=== PATIENT | female | born 1940 | race Caucasian/White ===

== ENCOUNTER 2018-10-31 13:15 | Inpatient (IN) | payer MEDICARE ==
--- NOTE | 2018-10-31 14:11 | History & Physical ---
History of Present Illness - Date Date of Service for History & Physical: 11/01/18 - History of Present Illness History of Present Illness: Mrs. 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 The patient had a closed colostomy and open approach reversal of transverse colon on 08/23/18 due to diversticulitis. She was in rehab post-operatively but on her return home she complained of abdominal and left gluteal pain and her family reports that she began to 'decline' in mental status and physical mobility. The patient was re- admitted to [facility] where CT of the abdomen/pelvis showed anastomosis thickening, surrounding inflammatory changes and a large subcutaneous abscess was noted in addition to gluteal abscess. As a result she underwent incision and drainage of the abdominal wall abscess and diverting loop ileostomy and was started on IV antibiotics which she completed while at [facility]. The gluteal abscess was suppose to to be evaluated by interventional radiology as per the inpatient notes but no recommendations seen in provided documents. The patient is being admitted to [facility] Swing bed for deconditioning and continued wound care. She has advanced dementia and requires queing and instruction to complete tasks. She will be following with her surgeon Dr. Gisel Oliveros for post-op care/evaluation within 10 days. General - Communication Preferred Language?: Portuguese H&P Meds/Allergies - Allergies Allergies: Allergies Allergy/AdvReac Type Severity Reaction Status Date / Time No Known Drug Allergies Allergy Verified 10/31/18 17:11 Physical Exam - General General Appearance: Alert, Cooperative Limitations: No limitations - Head Head exam: Normal inspection - Eye Eye exam: Normal appearance, PERRL - ENT ENT exam: Normal exam Ear exam: Normal external inspection Mouth exam: Normal external inspection Teeth exam: Dental caries - Respiratory Respiratory exam: Normal lung sounds bilaterally - Cardiovascular Peripheral Pulses: 3+: Radial (R), Radial (L), Dorsalis Pedis (R), Dorsalis Pedis (L) - GI/Abdominal GI/Abdominal exam: Soft, Normal bowel sounds, Other (ostomy pink drainage well ) - Extremities Extremities exam: Normal inspection, Full ROM, Normal capillary refill. negative: Tenderness - Back Back exam: Reports: Other (draining abscess left flank) - Neurological Neurological exam: Abnormal gait, Alert - Psychiatric Psychiatric exam: Agitated - Skin Skin exam: Other (left gluteal ulcer with copius yellow drainage. ) Type of lesion: Abscess Plan - Swing Bed Certification Initial Certification Due: 10/31/18 14 Day Re-Cert Due: 11/14/18 44 Day Re-Cert Due: 12/14/18 74 Day Re-Cert Due: 01/13/19 - Detailed Diagnosis and Plan (1) Physical deconditioning Current Visit: Yes Status: Acute Base Code: R53.81 - OTHER MALAISE Comment : 11/01/18: - Deconditioning due to prolonged hospital stay s/p surgery. - PT/OT evaluation and treatment. - Fall precuations ordered. (2) Gluteal abscess Current Visit: Yes Status: Acute Base Code: L02.31 - CUTANEOUS ABSCESS OF BUTTOCK Comment: 11/01/18 - Left gluteal abscess with copius serous drainage. - Completed abx course at [facility]. Wound cultures positive for VRE. - Daily dressing changes and wound care. (3) Ileostomy, has currently Current Visit: Yes Status: Acute Base Code: Z93.2 - ILEOSTOMY STATUS Comment: 11/01/18: - S/P diverting loop ileostomy due to abdominal wall abscess and gluteal abscess. Post-op day #7 - Ostomy appears pink to be functioning well with + stool output. - Removal of stoma bridge to removed POD #10 - Nutrition: regualr diet, supplemented with Ensure. - Follow up with Gen. Surgery 10 days after discharge. (4) Encounter for postoperative wound care Current Visit: Yes Status: Acute Base Code: Z48.89 - ENCOUNTER FOR OTHER SPECIFIED SURGICAL AFTERCARE Comment: 11/01/18: - Wound care for gluteal abscess as noted. - Do not pack wound. Allow to drain and re-dress daily. (5) Dementia Current Visit: Yes Status: Acute Qualifiers: Dementia type: Alzheimer's disease Base Code: F03.90 - UNSPECIFIED DEMENTIA WITHOUT BEHAVIORAL DISTURBANCE Comment: 11/01/18: - Resume Aricept, Nemenda, Remeron. (6) HTN (hypertension) Current Visit: Yes Status: Acute Base Code: I10 - ESSENTIAL (PRIMARY) HYPERTENSION Comment: 11/01/18: - Resume home medications. (7) DVT prophylaxis Current Visit: Yes Status: Acute Base Code: [id number] - Comment: 11/01/18: - Lovenox 40mg SQ - Ambulation with assistance is encouraged. (8) Full code status Current Visit: Yes Status: Acute Base Code: Z78.9 - OTHER SPECIFIED HEALTH STATUS Comment: 11/01/18: - Full code.
[2018-10-31] MEDS: ACETAMINOPHEN 325 MG TAB PO PRN (16:44)
[2018-10-31] MEDS ORDERED: PNEUM 13-VAL/PF 0.5 ML IM ONE (20:05)
[2018-10-31] MEDS: DONEPEZIL HCL 5 MG TABLET PO SCH (22:38)
[2018-10-31] MEDS: SIMVASTATIN 20 MG TABLET PO SCH (22:39)
[2018-10-31] MEDS: MIRTAZAPINE 15 MG TABLET PO SCH (22:39)
[2018-10-31] MEDS: MEMANTINE HCL 10 MG TABLET PO SCH (22:39)
[2018-11-01] MEDS: ACETAMINOPHEN 325 MG TAB PO PRN ×2 (04:44→11:06)
[2018-11-01] MEDS: PANTOPRAZOLE SODIUM 40 MG TABLET PO SCH (06:10)
[2018-11-01] MEDS: CALCIUM CARB/VITAMIN D 500MG/200IU PO SCH (09:11)
[2018-11-01] MEDS: ASPIRIN 81 MG TABEC PO SCH (09:11)
[2018-11-01] MEDS: METOPROLOL SUCC 25 MG TAB.ER PO SCH (09:11)
[2018-11-01] MEDS: MULTIVITAMINS/MINERALS TABLET PO SCH (09:11)
[2018-11-01] MEDS: MEMANTINE HCL 10 MG TABLET PO SCH ×2 (09:11→22:44)
[2018-11-01] MEDS: CHOLECALCIFEROL 1,000 UNIT TABLET PO SCH (09:11)
--- NOTE | 2018-11-01 10:13 | Rehab Evaluation ---
Patient Information - Patient Information Diagnosis: deconditioning d/t post diverting loop ostomy Ordered Treatment: OT Evaluate and Treat Status: Initial Evaluation Past Medical/Surgical Hx: PAST MEDICAL/SURGICAL HISTORY Past Surgical History 10/21/2018 I&D abd abscess 10/24/2018 Lap diverting loop ilestomy PMH - Neuro Hx Seizures Yes PMH - GI Hx Gastrointestinal Disorders Yes Hx Diverticulitis Yes PMH - Psych Hx Psychiatric Problems Yes PMH - Hematology/Oncology Hx Chemotherapy Yes Premorbid Status: Detail (Pt lives with spouse in a 2 story house with 3 steps and 1 railing at the entrance. Her bedroom is usually on the second floor but she currently has a bed available on the main level. She has a walk in shower with a seat and grab bars and a standard height toilet with grab bars. She has a toilet riser that she prefers not to use. She is responsible for home mgmt and laundry and her spouse is responsible for meal prep. She ambulates with a 4 wheeled walker.) Precautions: [place], Fall, Other (isolation) - Time With Patient Total Time Spent With Patient (Min): 35 Treatment Procedures: Detail (OT eval low complexity) Subjective Information - Subjective Information Per Patient Objective Data - Pain Pain Present: Yes (3/10 buttock pain) - Mental Status Patient Orientation: Oriented x3 - Visual Perception Appears within normal limits for therapeutic activities (Pt reports she wears glasses for reading.) - ROM Not within normal limits (Dwain shoulder flexion limited to approx. 90 degrees. Remaining dwain UE AROM WNL.) - Strength/Tone Not within normal limits (Dwain shoulder strength 4-/5, dwain elbow and bleach mixer strength 4/5) - Coordination Appears within normal limits for therapeutic activities - Bed Mobility Needs Assist (Pt required min assist for supine to sit.) - Transfers Needs Assist (Min assist for sit to stand from EOB, CG assist for sit to stand from wheelchair seat.) - Balance Balance Sitting: Good Balance Standing: Fair - Sensation Intact - Gait Detail (Pt amb several feet in room with 4 wheeled walker and CG assist.) - ADL's/IADL's Detail (Pt able to brush hair and teeth with verbal encouragement, she refused to doff slipper socks, don socks,shoes or clean brief. She reports she does not want to try as she is unable.) Therapy Assessment - Therapy Assessment Detail (Pt presents with decreased tolerance to activity, decreased Ind with self cares and functional mobility.) Problem List - Problem List Occupational Therapy Problem List: Detail (1. Decreased activity tolerance. 2. Decreased Ind with functional mobility needed for self cares. 3. Decreased Ind with dressing and showering.) Goals - Goals Occupational Therapy Goals: 1. Pt will demonstrate improved endurance to allow Ind with self care activites. 2. Pt will be Ind with bed mobility and ambulation to allow Ind with ADLs. 3. Pt will be Ind with total body dressing. 4. Pt will be Ind with showering in sitting. Prognosis - Prognosis Moderate Plan - Plan Occupational Therapy Plan: OT 2-4 days per week.
[2018-11-01] MEDS: ENOXAPARIN 40 MG/0.4 ML SYR SQ SCH (10:21)
--- NOTE | 2018-11-01 10:25 | Rehab Evaluation ---
Patient Information - Patient Information Diagnosis: deconditioning d/t post diverting loop ostomy Ordered Treatment: PT Evaluate and Treat Status: Initial Evaluation Past Medical/Surgical Hx: PAST MEDICAL/SURGICAL HISTORY Past Surgical History 10/21/2018 I&D abd abscess 10/24/2018 Lap diverting loop ilestomy PMH - Neuro Hx Seizures Yes PMH - GI Hx Gastrointestinal Disorders Yes Hx Diverticulitis Yes PMH - Psych Hx Psychiatric Problems Yes PMH - Hematology/Oncology Hx Chemotherapy Yes Premorbid Status: Detail (Pt lives with spouse in a 2 story house with 3 steps and 1 railing at the entrance. Her bedroom is usually on the second floor but she currently has a bed available on the main level. She has a walk in shower with a seat and grab bars and a standard height toilet with grab bars. She has a toilet riser that she prefers not to use. She is responsible for home mgmt and laundry and her spouse is responsible for meal prep. She ambulates with a 4 wheeled walker.) Precautions: [place], Fall, Other (isolation) - Time With Patient Total Time Spent With Patient (Min): 30 Treatment Procedures: Detail (Initial Evalution) Subjective Information - Subjective Information Per Patient (The patient had complaints of abdominal region pain which she did not rate using 0-10 pain scale.) Objective Data - Mental Status Patient Orientation: Oriented x3 (The patient knew current month, birthdate and place. The patient was reluctant and agitated at times throughout evaluation, stating she wouldn't complete certain activities.), Person - Visual Perception Appears within normal limits for therapeutic activities - ROM Within normal limits (The patient's LE AROM was WFL.) - Strength/Tone Not within normal limits (LE strength: : hip flexors L 4/5, R 4-/5, B hip abductors and adductors 4-/5, knee extensors L 4/5, R 4-/5, knee flexors L 4/5, R 4-/5, ankle musculature 4+/5.) - Bed Mobility Needs Assist (The patient required minimal PA with supine to sit transfer.) - Transfers Independent (The patient was independent with sit to and from stand transfer.) - Balance Balance Sitting: Good Balance Standing: Fair (The patient exhibited upper extremity tremors when standing without support. The patient's balance was not formally assessed.) - Gait Detail (The patient ambulated with 4 wheeled walker with supervision for safety 13 feet x 1.) Therapy Assessment - Therapy Assessment Detail (The patient was reluctant to complete many activities without assist ie : bed mobility, putting on and taking off socks- stating that she couldn't and wouldn't do it. The patient ambulated short distances with supervision for safety. Patient's Rehab potential is guarded due to reluctance to participate.) Problem List - Problem List Physical Therapy Problem List: Detail (1) Mental status- agitation, reluctance to complete ADL's independently 2) LE weakness R side greater then L 3) Assistance with bed mobility 4) Decreased ability to complete prolonged physical activity) Occupational Therapy Problem List: Detail (1. Decreased activity tolerance. 2. Decreased Ind with functional mobility needed for self cares. 3. Decreased Ind with dressing and showering.) Goals - Goals Occupational Therapy Goals: 1. Pt will demonstrate improved endurance to allow Ind with self care activites. 2. Pt will be Ind with bed mobility and ambulation to allow Ind with ADLs. 3. Pt will be Ind with total body dressing. 4. Pt will be Ind with showering in sitting. Prognosis - Prognosis Moderate Plan - Plan Physical Therapy Plan: PT 1-2 times a day for gait training, LE strengthening exercises and bed mobility. Occupational Therapy Plan: OT 2-4 days per week.
--- NOTE | 2018-11-01 14:12 | Physical Therapy Tx Note ---
Physical Therapy Tx Note - Treatment Note Tolerated: Fair Total Time Spent With Patient: 20 Physical Therapy Tx Note: Detail (The patient was in bed when PT arrived. The patient required minimal PA with supine to sit and scooting forward in a sitting position. The patient stood x 1 and reported she felt light headed . The patient then stood again without lightheadedness and ambulated with 4 wheeled walker 10 feet to chair. Patient did not feel well enough to ambulate further. The patient completed the following LE exercises : hip marching, LAQ, ankle pumps, hip adductor squeezes, resisted hip abduction all x 10 reps. Shortness of breath was noted after LE exercises. Patient requested to go back to bed due to fatigue. Patient was encouraged to sit up at least a half an hour. Patient was left up in chair with call light in reach. Nursing staff was notified that patient was up in chair.) Physical Therapy Problem List: Detail (1) Mental status- agitation, reluctance to complete ADL's independently 2) LE weakness R side greater then L 3) Assistance with bed mobility 4) Decreased ability to complete prolonged physical activity) Physical Therapy Plan: PT 1-2 times a day for gait training, LE strengthening exercises and bed mobility.
[2018-11-01] MEDS: ACETAMINOPHEN 500 MG TABLET PO PRN (19:34)
[2018-11-01] MEDS ORDERED: ZINC OXIDE 28.35 GM TUBE TOP ONE (22:23)
[2018-11-01] MEDS: MIRTAZAPINE 15 MG TABLET PO SCH (22:44)
[2018-11-01] MEDS: DONEPEZIL HCL 5 MG TABLET PO SCH (22:44)
[2018-11-01] MEDS: SIMVASTATIN 20 MG TABLET PO SCH (22:44)
[2018-11-02] MEDS ORDERED: ZINC OXIDE 28.35 GM TUBE TOP PRN (01:50)
[2018-11-02] MEDS: ACETAMINOPHEN 500 MG TABLET PO PRN ×3 (04:47→19:04)
[2018-11-02 06:08] LABS: HEMATOCRIT 33.9 % (35.0-47.0); HEMOGLOBIN 10.1 gm/dl (11.6-16.0); MEAN CELL VOLUME 88.5 fl (81-97); MEAN CORPUSCULAR HGB CONC 29.8 g/dl (32-36); MEAN PLATELET VOLUME 8.1 fl (7.4-10.4); PLATELET COUNT 499 K/uL (130-400); RED BLOOD COUNT 3.83 M/uL (3.80-5.40); RED CELL DISTRIBUTION WIDTH 17.2 % (11.5-14.5); WHITE BLOOD COUNT W/O DIFF 10.9 K/uL (4.2-12.2)
[2018-11-02] MEDS: PANTOPRAZOLE SODIUM 40 MG TABLET PO SCH (06:10)
[2018-11-02 06:14] LABS: MEAN CORPUSCULAR HEMOGLOBIN 26.3 pg (27-33)
[2018-11-02 06:23] LABS: ALB/GLOB RATIO 0.8 (1.1-1.8); ALBUMIN 3.1 g/dL (4.0-5.0); ALKALINE PHOSPHATASE 113 U/L (45-87); ALT/SGPT 16 U/L (<33); AST/SGOT 18 U/L (10.0-35.0); BLOOD UREA NITROGEN 11 mg/dL (8-23); CREATININE 0.9 mg/dL (0.5-0.9); EST GLOMERULAR FILTRATION RATE > 60 mL/min; GLUCOSE,RANDOM 111 mg/dL (74-109); TOTAL PROTEIN 6.8 g/dL (6.6-8.7)
[2018-11-02 06:50] LABS: ANISOCYTOSIS 1+; PLATELET ESTIMATE INCREASED (NORMAL)
[2018-11-02] MEDS: ENOXAPARIN 40 MG/0.4 ML SYR SQ SCH (10:42)
[2018-11-02] MEDS: MULTIVITAMINS/MINERALS TABLET PO SCH (10:43)
[2018-11-02] MEDS: METOPROLOL SUCC 25 MG TAB.ER PO SCH (10:43)
[2018-11-02] MEDS: MEMANTINE HCL 10 MG TABLET PO SCH ×2 (10:43→21:52)
[2018-11-02] MEDS: CHOLECALCIFEROL 1,000 UNIT TABLET PO SCH (10:43)
[2018-11-02] MEDS: CALCIUM CARB/VITAMIN D 500MG/200IU PO SCH (10:43)
[2018-11-02] MEDS: ASPIRIN 81 MG TABEC PO SCH (10:43)
[2018-11-02] MEDS: DONEPEZIL HCL 5 MG TABLET PO SCH (21:52)
[2018-11-02] MEDS: SIMVASTATIN 20 MG TABLET PO SCH (21:52)
[2018-11-02] MEDS: MIRTAZAPINE 15 MG TABLET PO SCH (21:52)
[2018-11-03] MEDS: PANTOPRAZOLE SODIUM 40 MG TABLET PO SCH (06:22)
[2018-11-03] MEDS: ENOXAPARIN 40 MG/0.4 ML SYR SQ SCH (09:13)
[2018-11-03] MEDS: MEMANTINE HCL 10 MG TABLET PO SCH ×2 (09:14→21:03)
[2018-11-03] MEDS: CHOLECALCIFEROL 1,000 UNIT TABLET PO SCH (09:14)
[2018-11-03] MEDS: METOPROLOL SUCC 25 MG TAB.ER PO SCH (09:14)
[2018-11-03] MEDS: ASPIRIN 81 MG TABEC PO SCH (09:14)
[2018-11-03] MEDS: CALCIUM CARB/VITAMIN D 500MG/200IU PO SCH (09:14)
[2018-11-03] MEDS: MULTIVITAMINS/MINERALS TABLET PO SCH (09:14)
--- NOTE | 2018-11-03 09:23 | Physician Progress Note ---
Subjective - Date Date of Progress Note: 11/03/18 - Admitting Diagnosis Diagnosis: Deconditioning due to post diverting loop ostomy - Subjective Events since last encounter: The patient has had several runs of fever, controlled with Tylenol. She continues to have copius amounts of drainage from the gluteal fistula and today there is noted similar discharge per rectum. Nursing Care Plan Problem List Activity Intolerance (Swing Bed) Start: 10/31/18 18: 22 Freq: Status: Active Protocol: Created 10/31/18 18:22 SAF (Rec: 10/31/18 18:22 SAF [id number]) Altered Thought Process (Fall Risk) Start: 10/31/18 19: 58 Freq: Status: Active Protocol: Created 10/31/18 19:58 SAF (Rec: 10/31/18 19:58 SAF [id number]) Body Image Disturbance Start: 10/31/18 17: 42 Freq: Status: Active Protocol: Created 10/31/18 17:42 KMC (Rec: 10/31/18 17:42 KMC [id number]) High Risk: Post-Op Complications Start: 10/31/18 17: 42 Freq: Status: Active Protocol: Created 10/31/18 17:42 KMC (Rec: 10/31/18 17:42 KMC [id number]) Impaired Mobility (Fall Risk) Start: 10/31/18 19: 58 Freq: Status: Active Protocol: Created 10/31/18 19:58 SAF (Rec: 10/31/18 19:58 SAF [id number]) Impaired Skin Integrity Start: 10/31/18 17: 42 Freq: Status: Active Protocol: Created 10/31/18 17:42 KMC (Rec: 10/31/18 17:42 KMC [id number]) Knowledge Deficit (Swing Bed) Start: 10/31/18 18: 22 Freq: Status: Active Protocol: Created 10/31/18 18:22 SAF (Rec: 10/31/18 18:22 SAF [id number]) Knowledge Deficit: Colostomy Start: 10/31/18 17: 42 Freq: Status: Active Protocol: Created 10/31/18 17:42 KMC (Rec: 10/31/18 17:42 KMC [id number]) Pain (Swing Bed) Start: 10/31/18 18: 22 Freq: Status: Active Protocol: Created 10/31/18 18:22 SAF (Rec: 10/31/18 18:22 SAF [id number]) Risk For Falls (Swing Bed) Start: 11/02/18 10: 09 Freq: Status: Active Protocol: Created 11/02/18 10:09 MMT (Rec: 11/02/18 10:09 MMT [id number]) Risk For Infection (Swing Bed) Start: 10/31/18 17: 42 Freq: Status: Active Protocol: Created 10/31/18 17:42 KMC (Rec: 10/31/18 17:42 KMC [id number]) Risk for Injury (Fall Risk) Start: 10/31/18 19: 58 Freq: Status: Active Protocol: Created 10/31/18 19:58 SAF (Rec: 10/31/18 19:58 SAF [id number]) Skin Integrity, Impaired (Swing Bed) Start: 10/31/18 17: 42 Freq: Status: Active Protocol: Created 10/31/18 17:42 KMC (Rec: 10/31/18 17:42 KMC [id number]) - Subjective Detail Gastrointestinal: Reports: Other (mucopurulent rectal discharge. ) Skin: Reports: Other (gluteal abscess) General - Cognitive Patterns Speech: Normal Speech Comment: Short answers; did not elaborate unless asked to specifically. Thought Process: Intact Thought Content: Normal - Communication Select best description of speech pattern: Clear Speech Ability to express ideas and wants: Understood Understanding verbal content: Usually Understands - Mood and Behavior Patterns Appearance: Well Groomed Mood: Normal, Irritable Mood Comment: Pt seemed a bit irritable, but was cooperative. Attitude: Cooperative Motor Activity: Calm Affect: Flat Hallucinations: Denies - Physical Functioning Activity Level: Up with assist x1 Turning: Self ad yoli ROM Ability: Moves all extremities Assistive Devices: 2 Wheel Walker Ambulation Ability: Needs Assist Bed Mobility: Independent Transfer Ability: Needs Assist Bathing Ability: Needs Assist Personal Hygiene: Needs Assist Dressing Ability: Needs Assist Eating (Feeding) Ability: Independent Toileting Ability: Needs Assist Administer Own Medication: Independent - Continence Bowel Pattern: Diarrhea Bladder Pattern: Incontinent Urinary Incontinence: Unconscious Meds/Allergies - Allergies Allergies Allergy/AdvReac Type Severity Reaction Status Date / Time No Known Drug Allergies Allergy Verified 10/31/18 17:11 - Active Medications Current Medications Acetaminophen (Tylenol 500mg Tab) 1,000 mg PO Q6H PRN PRN Reason: FEVER Last Admin: 11/02/18 19:04 Dose: 1,000 mg Aspirin (Ecotrin (Ec)) 81 mg PO DAILY [facility] Last Admin: 11/03/18 09:14 Dose: 81 mg Calcium/Vitamin D (Calcium 500+D Tablet) 1 tab PO DAILY [facility] Last Admin: 11/03/18 09:14 Dose: 1 tab Donepezil HCl (Aricept) 10 mg PO QHS [facility] Last Admin: 11/02/18 21:52 Dose: 10 mg Enoxaparin Sodium (Lovenox) 40 mg SQ DAILY [facility] Last Admin: 11/03/18 09:13 Dose: 40 mg Memantine (Namenda) 10 mg PO BID [facility] Last Admin: 11/03/18 09:14 Dose: 10 mg Metoprolol Succinate (Toprol Xl) 25 mg PO DAILY [facility] Last Admin: 11/03/18 09:14 Dose: 25 mg Mirtazapine (Remeron) 15 mg PO QHS [facility] Last Admin: 11/02/18 21:52 Dose: 15 mg Multivitamins/Minerals (Centrum) 1 tab PO DAILY [facility] Last Admin: 11/03/18 09:14 Dose: 1 tab Pantoprazole Sodium (Protonix) 40 mg PO DAILYAC [facility] Last Admin: 11/03/18 06:22 Dose: 40 mg Simvastatin (Zocor) 20 mg PO QHS [facility] Last Admin: 11/02/18 21:52 Dose: 20 mg Vitamin D (Vitamin D3) 1,000 unit PO DAILY [facility] Last Admin: 11/03/18 09:14 Dose: 1,000 unit Zinc Oxide (Desitin) 10 gm TOP ASDIR PRN PRN Reason: RASH Objective - Vital Signs Vital Signs: Vital Signs - Last 24 Hrs Temp Pulse Resp BP Pulse Ox 11/03/18 08:00 98.2 F 118 H 18 144/75 90 L 11/02/18 20:00 100.3 F H 66 16 127/61 92 L 11/02/18 16:43 100.8 F H 11/02/18 11:55 100.5 F H - General General Appearance: Alert, Cooperative Limitations: No limitations - Head Head exam: Normal inspection - Eye Eye exam: Normal appearance, PERRL - ENT ENT exam: Normal exam Ear exam: Normal external inspection Mouth exam: Normal external inspection Teeth exam: Dental caries - Respiratory Respiratory exam: Normal lung sounds bilaterally - Cardiovascular Peripheral Pulses: 3+: Radial (R), Radial (L), Dorsalis Pedis (R), Dorsalis Pedis (L) - GI/Abdominal GI/Abdominal exam: Soft, Normal bowel sounds, Other (ostomy pink drainage well + stool) - Rectal Rectal exam: Other - Extremities Extremities exam: Normal inspection, Full ROM, Normal capillary refill. negative: Tenderness - Back Back exam: Reports: Other (draining abscess left flank) - Neurological Neurological exam: Abnormal gait, Alert - Psychiatric Psychiatric exam: Agitated - Skin Skin exam: Other (left gluteal ulcer with copius yellow drainage. ) Type of lesion: Abscess H&P Results - Labs Result Diagrams: 11/02/18 05:50 11/02/18 05:50 Discharge Potential - Discharge Needs Community Services Used Prior to Admission: Home Health Aide, Home Health Nurse , Occupational Therapy, Physical Therapy Patient Discharge Plan Description: Return Home Community Services Needed at Discharge: Home Health Aide, Home Health Nurse, Occupational Therapy, Physical Therapy Discharge Needs Comment: No referrals initiated at this time. Will determine services needed at discharge as CM continues to evaluate pt's progress during [facility] stay. Plan - Swing Bed Certification Initial Certification Due: 10/31/18 14 Day Re-Cert Due: 11/14/18 44 Day Re-Cert Due: 12/14/18 74 Day Re-Cert Due: 01/13/19 - Detailed Diagnosis and Plan (1) Physical deconditioning Current Visit: Yes Status: Acute Base Code: R53.81 - OTHER MALAISE Comment : 11/03/18: - Deconditioning due to prolonged hospital stay s/p surgery. - PT/OT evaluation and treatment. The patient seems to be more motivated since initial evaluation and PT/OT will resume tomorrow. - Fall precuations ordered. (2) Gluteal abscess Current Visit: Yes Status: Acute Base Code: L02.31 - CUTANEOUS ABSCESS OF BUTTOCK Comment: 11/03/18 - Left gluteal abscess with copius serous drainage. Still draining copius amounts of fluid. - Completed abx course at [facility] [facility]. Wound cultures positive for VRE considered to be colonization however if the patient continues to have fever and no resolution of this abscess Infectious disease will need to be consulted. The patient is to see General Surgery within the next few days. Will confirm appointment with SW. - Daily dressing changes and wound care. (3) Ileostomy, has currently Current Visit: Yes Status: Acute Base Code: Z93.2 - ILEOSTOMY STATUS Comment: 11/03/18: - S/P diverting loop ileostomy due to abdominal wall abscess and gluteal abscess. Post-op day #7 - Ostomy appears pink to be functioning well with + stool output. - Removal of stoma bridge to removed POD #10 - Nutrition: regular diet, supplemented with Ensure. - Follow up with Gen. Surgery 10 days after discharge. (4) Encounter for postoperative wound care Current Visit: Yes Status: Acute Base Code: Z48.89 - ENCOUNTER FOR OTHER SPECIFIED SURGICAL AFTERCARE Comment: 11/03/18: - Wound care for gluteal abscess as noted. - Do not pack wound. Allow to drain and re-dress daily. (5) Dementia Current Visit: Yes Status: Acute Qualifiers: Dementia type: Alzheimer's disease Base Code: F03.90 - UNSPECIFIED DEMENTIA WITHOUT BEHAVIORAL DISTURBANCE Comment: 11/03/18: - Resume Aricept, Nemenda, Remeron. (6) HTN (hypertension) Current Visit: Yes Status: Acute Base Code: I10 - ESSENTIAL (PRIMARY) HYPERTENSION Comment: 11/03/18: - BP controlled. - Resume home medications. (7) DVT prophylaxis Current Visit: Yes Status: Acute Base Code: DIJ7335 - Comment: 11/03/18: - Lovenox 40mg SQ - Ambulation with assistance is encouraged. (8) Full code status Current Visit: Yes Status: Acute Base Code: Z78.9 - OTHER SPECIFIED HEALTH STATUS Comment: 11/03/18: - Full code.
[2018-11-03] MEDS: SIMVASTATIN 20 MG TABLET PO SCH (21:03)
[2018-11-03] MEDS: MIRTAZAPINE 15 MG TABLET PO SCH (21:03)
[2018-11-03] MEDS: DONEPEZIL HCL 5 MG TABLET PO SCH (21:03)
[2018-11-04] MEDS: PANTOPRAZOLE SODIUM 40 MG TABLET PO SCH (07:03)
--- NOTE | 2018-11-04 08:00 | Occupational Therapy Tx Note ---
Occupational Therapy Tx Note - Treatment Note Tolerated: Fair Total Time Spent With Patient: 20 (ADL) Occupational Therapy Treatment Note: Detail (S: Pt resting in bed, mildly agitated when disturbed. O: Supine to sit with min physical assist and continuous verbal encouragement. Pt able to scoot to EOB with verbal cues. Pt able to don hospital PJ bottoms with max verbal encouragement and min assist to start over feet. Sit to stand with CG assist and pt refused to pull pants over hips. Pants pulled up per OT. She amb 5 feet to chair with 4 wheeled walker and CG assist. Pt able to tie pants while in sitting. A: Pt very agitated and non cooperative stating she "isn't going to do it and someone needs to do it for her". Pt requires min assist for bed mobility and CG assist for ambulation, min-mod assist to don pants.) Occupational Therapy Problem List: Detail (1. Decreased activity tolerance. 2. Decreased Ind with functional mobility needed for self cares. 3. Decreased Ind with dressing and showering.) Occupational Therapy Goals: 1. Pt will demonstrate improved endurance to allow Ind with self care activites. 2. Pt will be Ind with bed mobility and ambulation to allow Ind with ADLs. 3. Pt will be Ind with total body dressing. 4. Pt will be Ind with showering in sitting. Prognosis: Moderate Occupational Therapy Plan: OT 2-4 days per week.
[2018-11-04] MEDS: ENOXAPARIN 40 MG/0.4 ML SYR SQ SCH (10:05)
[2018-11-04] MEDS: CHOLECALCIFEROL 1,000 UNIT TABLET PO SCH (10:07)
[2018-11-04] MEDS: MULTIVITAMINS/MINERALS TABLET PO SCH (10:07)
[2018-11-04] MEDS: CALCIUM CARB/VITAMIN D 500MG/200IU PO SCH (10:07)
[2018-11-04] MEDS: METOPROLOL SUCC 25 MG TAB.ER PO SCH (10:07)
[2018-11-04] MEDS: MEMANTINE HCL 10 MG TABLET PO SCH ×2 (10:08→21:03)
[2018-11-04] MEDS: ASPIRIN 81 MG TABEC PO SCH (10:08)
--- NOTE | 2018-11-04 13:31 | Physical Therapy Tx Note ---
Physical Therapy Tx Note - Treatment Note Tolerated: Fair Total Time Spent With Patient: 20 Physical Therapy Tx Note: Detail (The patient was in bed when PT arrived. The patient required encouragement to participate. The patient required moderate PA of supine to sit. The patient ambulated 5 feet to the chair with 4 wheeled walker with CG of 1 for safety. The patient completed the following exercises with red theraband: bicep curls, hip abduction, hip adduction, hip marching, LAQ , hamstring curls and ankle pumps all x 10 reps. The patient requested to go back to bed detention through exercises. The patient ambulated 15 feet x 1 with 4 wheeled walker and supervision for safety. The patient then returned to bed. Patient was independent with sit to supine but required max/mod PA of 1 and maximal verbal encouragement for scooting up in bed. The patient was left in bed with call light within reach. Patient continues to refuse to complete activities at time ie: scooting up in bed, stating "you do it". The patient's gait pattern was poor, often positioning walker too far in front and walking with feet outside of walker.) Physical Therapy Problem List: Detail (1) Mental status- agitation, reluctance to complete ADL's independently 2) LE weakness R side greater then L 3) Assistance with bed mobility 4) Decreased ability to complete prolonged physical activity) Physical Therapy Goals: 1) The patient will be independent with bed mobility. 2 ) Increase LE strength 1/3 muscle grade to increase stability of gait. 3) The patient will ambulate with assistive device with supervision for safety only using a safe gait pattern. 4) The patient will be independent with all transfers. Physical Therapy Plan: PT 1-2 times a day for gait training, LE strengthening exercises and bed mobility.
[2018-11-04] MEDS: MIRTAZAPINE 15 MG TABLET PO SCH (21:03)
[2018-11-04] MEDS: SIMVASTATIN 20 MG TABLET PO SCH (21:03)
[2018-11-04] MEDS: DONEPEZIL HCL 5 MG TABLET PO SCH (21:03)
[2018-11-05] MEDS: PANTOPRAZOLE SODIUM 40 MG TABLET PO SCH (06:21)
[2018-11-05] MEDS: MULTIVITAMINS/MINERALS TABLET PO SCH (10:22)
[2018-11-05] MEDS: ENOXAPARIN 40 MG/0.4 ML SYR SQ SCH (10:22)
[2018-11-05] MEDS: CALCIUM CARB/VITAMIN D 500MG/200IU PO SCH (10:23)
[2018-11-05] MEDS: ASPIRIN 81 MG TABEC PO SCH (10:23)
[2018-11-05] MEDS: CHOLECALCIFEROL 1,000 UNIT TABLET PO SCH (10:24)
[2018-11-05] MEDS: METOPROLOL SUCC 25 MG TAB.ER PO SCH (10:24)
[2018-11-05] MEDS: MEMANTINE HCL 10 MG TABLET PO SCH ×2 (10:24→22:10)
--- NOTE | 2018-11-05 11:55 | Physical Therapy Tx Note ---
Physical Therapy Tx Note - Treatment Note Total Time Spent With Patient: 25 Physical Therapy Tx Note: Detail (The patient was in bed when PT arrived. The patient was able to acheive supine to sit independently with use of railing. The patient was able to scoot bottom forward to place feet on floor. The patient refused to put her shoes on but did scoot her feet into shoes with assist. The patient was gowned per isolation restrictions and ambulated into the hallway with 4 wheeled walker with supervision for safety 13 feet x 1. The patient ambulated with short shuffling steps but placed walker an appropriate distance ( not too far in front). The patient ambulated on 3 steps with supervision of 2 for safety with both hands on railing. Stair climbing took 2 attempts secondary to patient feeling lightheaded and expressing fear of stair climbing. Recommend family members be present when the patient is climbing stairs at home. The patient returned to room after a rest period 30 feet x 1 with supervision for safety. The patient was left in chair with call light within reach. The patient was encouraged to stay up in chair for a half an hour. ) Physical Therapy Problem List: Detail (1) Mental status- agitation, reluctance to complete ADL's independently 2) LE weakness R side greater then L 3) Assistance with bed mobility 4) Decreased ability to complete prolonged physical activity) Physical Therapy Goals: 1) The patient will be independent with bed mobility. 2 ) Increase LE strength 1/3 muscle grade to increase stability of gait. 3) The patient will ambulate with assistive device with supervision for safety only using a safe gait pattern. 4) The patient will be independent with all transfers. Physical Therapy Plan: PT 1-2 times a day for gait training, LE strengthening exercises and bed mobility.
--- NOTE | 2018-11-05 14:59 | Occupational Therapy Tx Note ---
Occupational Therapy Tx Note - Treatment Note Tolerated: Fair Total Time Spent With Patient: 30 (ADL) Occupational Therapy Treatment Note: Detail (S: Pt refusing OT initially although she stated she was willing to get up and brush teeth. O: Supine to sit with maximal verbal encouragement and min assist. Sit to stand with 4 wheeled walker and amb to bathroom with CG, pt reported she needed to urinate and was able to amb several additional feet to toilet. Pt requesting OT to pull down pants but with verbal encouragement she was Ind. Stand to sit with grab bar. Pts briefs were soiled and therefore needed to be changed. Pt refusing to attempt doffing sweatpants or briefs although with encouragement she was able to assist with doffing pants, briefs were doffed per OT. Clean briefs were donned per OT as pt was refusing. Pt donned one pantleg of sweatpants with max cues, second pantleg donned per OT. Sit to stand with grab bar Indly and pt able to pull pants up with verbal cues. Pt refusing to complete oral hygiene or sit up in chair. Amb to EOB and sit to supine Indly. Pt required max verbal and min physical assist to scoot up in bed. A: Pt very argumentative and states OT is mean to her, she feels she will be able to do everything for herself at home and someone should just do it for her while she is here.) Occupational Therapy Problem List: Detail (1. Decreased activity tolerance. 2. Decreased Ind with functional mobility needed for self cares. 3. Decreased Ind with dressing and showering.) Occupational Therapy Goals: 1. Pt will demonstrate improved endurance to allow Ind with self care activites. 2. Pt will be Ind with bed mobility and ambulation to allow Ind with ADLs. 3. Pt will be Ind with total body dressing. 4. Pt will be Ind with showering in sitting. Prognosis: Poor Occupational Therapy Plan: OT 2-4 days per week.
[2018-11-05] MEDS: ACETAMINOPHEN 500 MG TABLET PO PRN (16:49)
[2018-11-05] MEDS: DONEPEZIL HCL 5 MG TABLET PO SCH (22:09)
[2018-11-05] MEDS: SIMVASTATIN 20 MG TABLET PO SCH (22:09)
[2018-11-05] MEDS: MIRTAZAPINE 15 MG TABLET PO SCH (22:10)
[2018-11-06] MEDS: PANTOPRAZOLE SODIUM 40 MG TABLET PO SCH (06:24)
[2018-11-06] MEDS: ASPIRIN 81 MG TABEC PO SCH (10:07)
[2018-11-06] MEDS: MEMANTINE HCL 10 MG TABLET PO SCH ×2 (10:07→21:38)
[2018-11-06] MEDS: MULTIVITAMINS/MINERALS TABLET PO SCH (10:07)
[2018-11-06] MEDS: CALCIUM CARB/VITAMIN D 500MG/200IU PO SCH (10:07)
[2018-11-06] MEDS: METOPROLOL SUCC 25 MG TAB.ER PO SCH (10:07)
[2018-11-06] MEDS: ENOXAPARIN 40 MG/0.4 ML SYR SQ SCH (10:07)
[2018-11-06] MEDS: CHOLECALCIFEROL 1,000 UNIT TABLET PO SCH (10:07)
--- NOTE | 2018-11-06 11:03 | Rehab Discharge Summary ---
Patient Information - Patient Information Diagnosis: deconditioning d/t post diverting loop ostomy Ordered Treatment: OT Evaluate and Treat Past Medical/Surgical Hx: PAST MEDICAL/SURGICAL HISTORY Past Surgical History 10/21/2018 I&D abd abscess 10/24/2018 Lap diverting loop ilestomy PMH - Neuro Hx Seizures Yes PMH - GI Hx Gastrointestinal Disorders Yes Hx Diverticulitis Yes PMH - Psych Hx Psychiatric Problems Yes PMH - Hematology/Oncology Hx Chemotherapy Yes Premorbid Status: Detail (Pt lives with spouse in a 2 story house with 3 steps and 1 railing at the entrance. Her bedroom is usually on the second floor but she currently has a bed available on the main level. She has a walk in shower with a seat and grab bars and a standard height toilet with grab bars. She has a toilet riser that she prefers not to use. She is responsible for home mgmt and laundry and her spouse is responsible for meal prep. She ambulates with a 4 wheeled walker.) Precautions: Bryson, Fall, Other (isolation) Subjective Information - Subjective Information Per Patient Objective Data - Pain Pain Present: Yes (Pt has buttock pain especially with sitting) - Mental Status Patient Orientation: Oriented x3 - Visual Perception Appears within normal limits for therapeutic activities - ROM Not within normal limits (Dwain UE AROM WNL with exception of shoulder flexion which is limited to approx. 90 degrees flexion) - Strength/Tone Not within normal limits (Wdain shoulder strength 4-/5, dwain elbow and competitive shopper strength 4/5) - Coordination Appears within normal limits for therapeutic activities - Bed Mobility Needs Assist (Pt is able to perform supine to sit Indly if she is motivated, otherwise she requires min assist.) - Transfers Independent (Ind with sit to stand from EOB, chair and toilet heights.) - Balance Balance Sitting: Good Balance Standing: Fair - Sensation Intact - Gait Detail (Pt ambulating in room with 4 wheeled walker and CG assist.) - ADL's/IADL's Detail (Pt requires assist for all self cares due to poor motivation. She has demonstrated partial dressing and grooming/hygiene as well as toileting tasks with min to mod assist. She requires significant verbal encouragement to participate in self care activities.) Therapy Assessment - Therapy Assessment Detail (Pt demonstrates improved endurance and functional mobility, her level of Ind with self cares is limited due to poor participation/motivation.) Problem List - Problem List Physical Therapy Problem List: Detail (1) Mental status- agitation, reluctance to complete ADL's independently 2) LE weakness R side greater then L 3) Assistance with bed mobility 4) Decreased ability to complete prolonged physical activity) Occupational Therapy Problem List: Detail (1. Decreased activity tolerance. 2. Decreased Ind with functional mobility needed for self cares. 3. Decreased Ind with dressing and showering.) Goals - Goals Physical Therapy Goals: 1) The patient will be independent with bed mobility. 2 ) Increase LE strength 1/3 muscle grade to increase stability of gait. 3) The patient will ambulate with assistive device with supervision for safety only using a safe gait pattern. 4) The patient will be independent with all transfers. Occupational Therapy Goals: Goals partially met: 1. Pt will demonstrate improved endurance to allow Ind with self care activites. 2. Pt will be Ind with bed mobility and ambulation to allow Ind with ADLs. 3. Pt will be Ind with total body dressing. 4. Pt will be Ind with showering in sitting. Prognosis - Prognosis Moderate Plan - Plan Physical Therapy Plan: PT 1-2 times a day for gait training, LE strengthening exercises and bed mobility. Occupational Therapy Plan: Pt discharging home on 11/07/18. Recommend home OT.
--- NOTE | 2018-11-06 13:44 | Physical Therapy Tx Note ---
Physical Therapy Tx Note - Treatment Note Tolerated: Fair Total Time Spent With Patient: 20 Physical Therapy Tx Note: Detail (The patient was in bed when PT arrived. The patient required moderate PA and maximal verbal encouragement to acheive supine to sit. Patient was agitated but did cooperate with verbal cues. The patient ambulated with 4 wheeled walker to chair with CG of 1. The patient's LE strength was tested : Hip flexors L 4-/5, R 4/5, hip abductors and adductors 4/5 , knee musculature 4/5, ankle musculature 4+/5. The patient completed LE strengthening exercises seated with T-band hip marching, hip abduction,LAQ, hamstring curls x 10 reps, ankle pumps, hip adductor squeezes x 10 reps. The patient was left in chair with call light within reach and Nursing staff was notified.) Physical Therapy Problem List: Detail (1) Mental status- agitation, reluctance to complete ADL's independently 2) LE weakness R side greater then L 3) Assistance with bed mobility 4) Decreased ability to complete prolonged physical activity) Physical Therapy Goals: 1) The patient will be independent with bed mobility. 2 ) Increase LE strength 1/3 muscle grade to increase stability of gait. 3) The patient will ambulate with assistive device with supervision for safety only using a safe gait pattern. 4) The patient will be independent with all transfers. Physical Therapy Plan: PT 1-2 times a day for gait training, LE strengthening exercises and bed mobility.
--- NOTE | 2018-11-06 18:04 | Physician Progress Note ---
Subjective - Date Date of Progress Note: 11/08/18 - Admitting Diagnosis Diagnosis: Deconditioning due to post diverting loop ostomy - Subjective Nursing Care Plan Problem List Activity Intolerance (Swing Bed) Start: 10/31/18 18: 22 Freq: Status: Active Protocol: Created 10/31/18 18:22 SAF (Rec: 10/31/18 18:22 SAF [id number]) Altered Thought Process (Fall Risk) Start: 10/31/18 19: 58 Freq: Status: Active Protocol: Created 10/31/18 19:58 SAF (Rec: 10/31/18 19:58 SAF [id number]) Body Image Disturbance Start: 10/31/18 17: 42 Freq: Status: Active Protocol: Created 10/31/18 17:42 KMC (Rec: 10/31/18 17:42 KMC [id number]) High Risk: Post-Op Complications Start: 10/31/18 17: 42 Freq: Status: Active Protocol: Created 10/31/18 17:42 KMC (Rec: 10/31/18 17:42 KMC [id number]) Impaired Mobility (Fall Risk) Start: 10/31/18 19: 58 Freq: Status: Active Protocol: Created 10/31/18 19:58 SAF (Rec: 10/31/18 19:58 SAF [id number]) Impaired Skin Integrity Start: 10/31/18 17: 42 Freq: Status: Active Protocol: Created 10/31/18 17:42 KMC (Rec: 10/31/18 17:42 KMC [id number]) Knowledge Deficit (Swing Bed) Start: 10/31/18 18: 22 Freq: Status: Active Protocol: Created 10/31/18 18:22 SAF (Rec: 10/31/18 18:22 SAF [id number]) Knowledge Deficit: Colostomy Start: 10/31/18 17: 42 Freq: Status: Active Protocol: Created 10/31/18 17:42 KMC (Rec: 10/31/18 17:42 KMC [id number]) Pain (Swing Bed) Start: 10/31/18 18: 22 Freq: Status: Active Protocol: Created 10/31/18 18:22 SAF (Rec: 10/31/18 18:22 SAF [id number]) Risk For Falls (Swing Bed) Start: 11/02/18 10: 09 Freq: Status: Active Protocol: Created 11/02/18 10:09 MMT (Rec: 11/02/18 10:09 MMT [id number]) Risk For Infection (Swing Bed) Start: 10/31/18 17: 42 Freq: Status: Active Protocol: Created 10/31/18 17:42 KMC (Rec: 10/31/18 17:42 KMC [id number]) Risk for Injury (Fall Risk) Start: 10/31/18 19: 58 Freq: Status: Active Protocol: Created 10/31/18 19:58 SAF (Rec: 10/31/18 19:58 SAF [id number]) Skin Integrity, Impaired (Swing Bed) Start: 10/31/18 17: 42 Freq: Status: Active Protocol: Created 10/31/18 17:42 KMC (Rec: 10/31/18 17:42 KMC [id number]) General - Cognitive Patterns Speech: Normal Speech Comment: Short answers; did not elaborate unless asked to specifically. Thought Process: Intact Thought Content: Normal - Communication Select best description of speech pattern: Clear Speech Ability to express ideas and wants: Understood Understanding verbal content: Usually Understands - Mood and Behavior Patterns Appearance: Well Groomed Mood: Normal, Irritable Mood Comment: Pt seemed a bit irritable, but was cooperative. Attitude: Cooperative Motor Activity: Calm Affect: Flat Hallucinations: Denies - Physical Functioning Activity Level: Up with assist x1 Turning: With partial assist ROM Ability: Moves all extremities Assistive Devices: 4 Wheel Walker Ambulation Ability: Needs Assist Bed Mobility: Needs Assist Transfer Ability: Needs Assist Bathing Ability: Needs Assist Personal Hygiene: Needs Assist Dressing Ability: Needs Assist Eating (Feeding) Ability: Independent Toileting Ability: Needs Assist Administer Own Medication: Needs Assist Care Ability Comment: Refusing to help with tasks such as moving over in the bed "pt states I can't, you do it" However, sometimes does complete the tasks that she is capible of doing that are asked of her. At times very defiant. - Continence Bowel Pattern: Colostomy Bladder Pattern: Incontinent Urinary Incontinence: Total Meds/Allergies - Allergies Allergies Allergy/AdvReac Type Severity Reaction Status Date / Time No Known Drug Allergies Allergy Verified 10/31/18 17:11 - Active Medications Current Medications Acetaminophen (Tylenol 500mg Tab) 1,000 mg PO Q6H PRN PRN Reason: FEVER Last Admin: 11/05/18 16:49 Dose: 1,000 mg Aspirin (Ecotrin (Ec)) 81 mg PO DAILY [facility] Last Admin: 11/06/18 10:07 Dose: 81 mg Calcium/Vitamin D (Calcium 500+D Tablet) 1 tab PO DAILY [facility] Last Admin: 11/06/18 10:07 Dose: 1 tab Donepezil HCl (Aricept) 10 mg PO QHS [facility] Last Admin: 11/05/18 22:09 Dose: 10 mg Enoxaparin Sodium (Lovenox) 40 mg SQ DAILY [facility] Last Admin: 11/06/18 10:07 Dose: 40 mg Memantine (Namenda) 10 mg PO BID [facility] Last Admin: 11/06/18 10:07 Dose: 10 mg Metoprolol Succinate (Toprol Xl) 25 mg PO DAILY [facility] Last Admin: 11/06/18 10:07 Dose: 25 mg Mirtazapine (Remeron) 15 mg PO QHS [facility] Last Admin: 11/05/18 22:10 Dose: 15 mg Multivitamins/Minerals (Centrum) 1 tab PO DAILY [facility] Last Admin: 11/06/18 10:07 Dose: 1 tab Pantoprazole Sodium (Protonix) 40 mg PO DAILYAC [facility] Last Admin: 11/06/18 06:24 Dose: 40 mg Simvastatin (Zocor) 20 mg PO QHS [facility] Last Admin: 11/05/18 22:09 Dose: 20 mg Vitamin D (Vitamin D3) 1,000 unit PO DAILY [facility] Last Admin: 11/06/18 10:07 Dose: 1,000 unit Zinc Oxide (Desitin) 10 gm TOP ASDIR PRN PRN Reason: RASH Objective - Vital Signs Vital Signs: Vital Signs - Last 24 Hrs Temp Pulse Resp BP Pulse Ox 11/06/18 15:55 100.2 F H 103 H 16 127/73 11/06/18 08:00 98.1 F 70 16 126/81 98 11/05/18 20:00 96.6 F L 95 H 15 126/78 97 - General General Appearance: Alert, Cooperative Limitations: No limitations - Head Head exam: Normal inspection - Eye Eye exam: Normal appearance, PERRL - ENT ENT exam: Normal exam Ear exam: Normal external inspection Mouth exam: Normal external inspection Teeth exam: Dental caries - Respiratory Respiratory exam: Normal lung sounds bilaterally - Cardiovascular Peripheral Pulses: 3+: Radial (R), Radial (L), Dorsalis Pedis (R), Dorsalis Pedis (L) - GI/Abdominal GI/Abdominal exam: Soft, Normal bowel sounds, Other (ostomy pink drainage well + stool) - Rectal Rectal exam: Other - Extremities Extremities exam: Normal inspection, Full ROM, Normal capillary refill. negative: Tenderness - Back Back exam: Reports: Other (draining abscess left flank) - Neurological Neurological exam: Abnormal gait, Alert - Psychiatric Psychiatric exam: Agitated - Skin Skin exam: Other (left gluteal ulcer with copius yellow drainage. ) Type of lesion: Abscess H&P Results - Labs Result Diagrams: 11/06/18 18:03 11/06/18 18:03 Discharge Potential - Discharge Needs Community Services Used Prior to Admission: Home Health Aide, Home Health Nurse , Occupational Therapy, Physical Therapy Patient Discharge Plan Description: Return Home Community Services Needed at Discharge: Home Health Aide, Home Health Nurse, Occupational Therapy, Physical Therapy Discharge Needs Comment: No referrals initiated at this time. Will determine services needed at discharge as CM continues to evaluate pt's progress during [facility] stay. Plan - Swing Bed Certification Initial Certification Due: 10/31/18 14 Day Re-Cert Due: 11/14/18 44 Day Re-Cert Due: 12/14/18 74 Day Re-Cert Due: 01/13/19
[2018-11-06 18:10] LABS: BASO % 0.4 % (0-6); EOS % 2.4 % (0-6); GRAN % 76.2 % (47-80); HEMATOCRIT 34.9 % (35.0-47.0); HEMOGLOBIN 10.2 gm/dl (11.6-16.0); LYMPH % 14.6 % (16-45); MEAN CELL VOLUME 87.7 fl (81-97); MEAN CORPUSCULAR HEMOGLOBIN 25.6 pg (27-33); MEAN CORPUSCULAR HGB CONC 29.2 g/dl (32-36); MEAN PLATELET VOLUME 8.6 fl (7.4-10.4); MONO % 6.4 % (0-9); PLATELET COUNT 461 K/uL (130-400); RED BLOOD COUNT 3.98 M/uL (3.80-5.40); RED CELL DISTRIBUTION WIDTH 16.5 % (11.5-14.5); WHITE BLOOD COUNT W/O DIFF 9.8 K/uL (4.2-12.2)
[2018-11-06 18:21] LABS: BLOOD UREA NITROGEN 18 mg/dL (8-23); CREATININE 0.9 mg/dL (0.5-0.9); EST GLOMERULAR FILTRATION RATE > 60 mL/min
[2018-11-06 18:23] LABS: GLUCOSE,RANDOM 116 mg/dL (74-109)
[2018-11-06] MEDS: SIMVASTATIN 20 MG TABLET PO SCH (21:38)
[2018-11-06] MEDS: MIRTAZAPINE 15 MG TABLET PO SCH (21:38)
[2018-11-06] MEDS: DONEPEZIL HCL 5 MG TABLET PO SCH (21:38)
[2018-11-07] MEDS: PANTOPRAZOLE SODIUM 40 MG TABLET PO SCH (06:18)
[2018-11-07] MEDS: METOPROLOL SUCC 25 MG TAB.ER PO SCH (09:28)
[2018-11-07] MEDS: MEMANTINE HCL 10 MG TABLET PO SCH (09:28)
[2018-11-07] MEDS: CALCIUM CARB/VITAMIN D 500MG/200IU PO SCH (09:28)
[2018-11-07] MEDS: CHOLECALCIFEROL 1,000 UNIT TABLET PO SCH (09:28)
[2018-11-07] MEDS: ENOXAPARIN 40 MG/0.4 ML SYR SQ SCH (09:28)
[2018-11-07] MEDS: ASPIRIN 81 MG TABEC PO SCH (09:28)
[2018-11-07] MEDS: MULTIVITAMINS/MINERALS TABLET PO SCH (09:28)
[2018-11-07] MEDS: ACETAMINOPHEN 500 MG TABLET PO PRN ×2 (09:28→17:41)
--- NOTE | 2018-11-07 11:11 | Physical Therapy Tx Note ---
Physical Therapy Tx Note - Treatment Note Tolerated: Good Total Time Spent With Patient: 20 Physical Therapy Tx Note: Detail (Patient was reclined in bed upon [employer] PA[employer] OPERATOR arrival. Patient states feeling alright today with no complaints. Patient transferred supine to sit independently. Patient transferred sit to and from stand CGA x1. Patient ambulated 10 feet with four wheeled walker CGA x1. Patient performed the following exercises seated in chair x15 reps each: ankle pumps, LAQ, hamstring curls with red theraband, hip abduction with red theraband, isometric hip adduction, isometric abdominals, marching, shoulder flexion, shoulder abduction, bicep curls with red theraband, tricep extension with red theraband, and rowing with red theraband. Patient declined further exercises, requesting to return to bed due to buttock hurting. Patient transferred sit to and from stand CGA x1. Patient ambulated 10 feet with four wheeled walker CGA x1. Patient transferred sit to supine independently. Patient tolerated treatment well. Patient displays fatigue with abdominal isometrics, hamstring curls, LAQ , and tricep extension. Patient was left supine in bed with call light within reach.) Physical Therapy Problem List: Detail (1) Mental status- agitation, reluctance to complete ADL's independently 2) LE weakness R side greater then L 3) Assistance with bed mobility 4) Decreased ability to complete prolonged physical activity) Physical Therapy Goals: 1) The patient will be independent with bed mobility. 2 ) Increase LE strength 1/3 muscle grade to increase stability of gait. 3) The patient will ambulate with assistive device with supervision for safety only using a safe gait pattern. 4) The patient will be independent with all transfers. Prognosis: Good Physical Therapy Plan: PT 1-2 times a day for gait training, LE strengthening exercises and bed mobility.
--- NOTE | 2018-11-07 17:39 | Discharge Summary ---
Providers Discharge Summary Date: 11/07/18 Date of admission: 10/31/18 13:15 Expected Date of Discharge: 11/07/18 Attending physician: DUC TAVARES Primary care physician: MORGAN KOCH D.O. Physical Exam - Vital Signs Vital Signs: Vital Signs - Last 24 Hrs Temp Pulse Resp BP BP Pulse Ox 11/07/18 11:37 98.2 F 127/77 11/07/18 08:00 97.5 F L 110 H 18 134/80 97 11/06/18 21:45 99.0 F 108 H 18 138/79 99 - General General Appearance: Alert, Cooperative Limitations: No limitations - Head Head exam: Normal inspection - Eye Eye exam: Normal appearance, PERRL - ENT ENT exam: Normal exam Ear exam: Normal external inspection Mouth exam: Normal external inspection Teeth exam: Dental caries - Respiratory Respiratory exam: Normal lung sounds bilaterally - Cardiovascular Peripheral Pulses: 3+: Radial (R), Radial (L), Dorsalis Pedis (R), Dorsalis Pedis (L) - GI/Abdominal GI/Abdominal exam: Soft, Normal bowel sounds, Other (ostomy pink drainage well + stool) - Rectal Rectal exam: Other - Extremities Extremities exam: Normal inspection, Full ROM, Normal capillary refill. negative: Tenderness - Back Back exam: Reports: Other (draining abscess left flank) - Neurological Neurological exam: Abnormal gait, Alert - Psychiatric Psychiatric exam: Agitated - Skin Skin exam: Other (left gluteal ulcer with copius yellow drainage. ) Type of lesion: Abscess Hospitalization - Hospitalization Admission Diagnosis: Deconditioning due to post diverting loop ostomy - Problem List (1) Encounter for postoperative wound care Current Visit: Yes Status: Acute Base Code: Z48.89 - ENCOUNTER FOR OTHER SPECIFIED SURGICAL AFTERCARE Comment: 11/03/18: - Wound care for gluteal abscess as noted. - Do not pack wound. Allow to drain and re-dress daily 11/07/18 -increased discharge from gluteal wound and rectum -fevers have returned -wound culture results are extensive for e coli, c diff, proteus vulgaris, entercocccus, staph, linnette and others with resistance to several abx groups -labs are stable, [facility] has accepted transfer for ID and surgical consults pt daughters present and updated on info, accept POC (2) Full code status Current Visit: Yes Status: Acute Base Code: Z78.9 - OTHER SPECIFIED HEALTH STATUS Comment: 11/03/18: - Full code. (3) Gluteal abscess Current Visit: Yes Status: Acute Base Code: L02.31 - CUTANEOUS ABSCESS OF BUTTOCK Comment: 11/03/18 - Left gluteal abscess with copius serous drainage. Still draining copius amounts of fluid. - Com[place] [facility] Wound cultures positive for VRE considered to be colonization however if the patient continues to have fever and no resolution of this abscess Infectious disease will need to be consulted. The patient is to see General Surgery within the next few days. Will confirm appointment with SW. - Daily dressing changes and wound care. (4) HTN (hypertension) Current Visit: Yes Status: Acute Base Code: I10 - ESSENTIAL (PRIMARY) HYPERTENSION Comment: 11/03/18: - BP controlled. - Resume home medications. (5) Ileostomy, has currently Current Visit: Yes Status: Acute Base Code: Z93.2 - ILEOSTOMY STATUS Comment: 11/03/18: - S/P diverting loop ileostomy due to abdominal wall abscess and gluteal abscess. Post-op day #7 - Ostomy appears pink to be functioning well with + stool output. - Removal of stoma bridge to removed POD #10 - Nutrition: regular diet, supplemented with Ensure. - Follow up with Gen. Surgery 10 days after discharge. 11/07/18 -bridge still remains, several attempts have been made to contact surgeon to confirm that brigde still placed -nutrition: poor intake, encouraging protein shakes -pt is assisting in olstomy care with nursing staff at this time, stoma pink/red , + stool output -gen surgery f/u 11/08/18 but pt is transfering to [facility] for poor wound healing , fever, and significant wound culture results needing ID consult (6) Physical deconditioning Current Visit: Yes Status: Acute Base Code: R53.81 - OTHER MALAISE Comment : 11/03/18: - Deconditioning due to prolonged hospital stay s/p surgery. - PT/OT evaluation and treatment. The patient seems to be more motivated since initial evaluation and PT/OT will resume tomorrow. - Fall precuations ordered. 11/07/18 -pt still refusing OT, poor PT today r/t pain and weakness (7) DVT prophylaxis Current Visit: Yes Status: Acute Base Code: [id number] - Comment: 11/03/18: - Lovenox 40mg SQ - Ambulation with assistance is encouraged. (8) Dementia Current Visit: Yes Status: Acute Discharge Diagnosis: Dementia type: Alzheimer's disease Base Code: F03.90 - UNSPECIFIED DEMENTIA WITHOUT BEHAVIORAL DISTURBANCE Comment: 11/03/18: - Resume Aricept, Nemenda, Remeron. - Hospitalization Course Disposition: Acute Care Hospital Transfer Reason For Discharge/Transfer: Patient's care needs cannot be met at [facility] Hospital Course: Mrs. Cody is a 78 y/o female with recent admission to [facility] after developing sepsis secondary to abdominal wall abscess with fistula to the intra-abdominal anastomosis and left gluteal abscess. The patient had a closed colostomy and open approach reversal of transverse colon on 08/23/18 due to diversticulitis. She was in rehab post-operatively but on her return home she complained of abdominal and left gluteal pain and her family reports that she began to 'decline' in mental status and physical mobility. The patient was re- admitted [place] [facility] [place] CT of the abdomen/pelvis showed anastomosis thickening, surrounding inflammatory changes and a large subcutaneous abscess was noted in addition to gluteal abscess. As a result she underwent incision and drainage of the abdominal wall abscess and diverting loop ileostomy and was started on IV antibiotics which she completed while at [facility]. The gluteal abscess was suppose to to be evaluated by interventional radiology as per the inpatient notes but no recommendations seen in provided documents. The patient is being admitted to [facility] Swing bed for deconditioning and continued wound care. She has advanced dementia and requires queing and instruction to complete tasks. She will be following with her surgeon Dr. Gisel Oliveros for post-op care/evaluation within 10 days. Abnormal Labs: Abnormal Lab Results 11/02/18 11/02/18 11/06/18 Range/Units 05:50 05:50 18:03 Hgb 10.1 L 10.2 L (11.6-16.0) gm/dl Hct 33.9 L 34.9 L (35.0-47.0) % MCH 26.3 L 25.6 L (27-33) pg MCHC 29.8 L 29.2 L (32-36) g/dl RDW 17.2 H 16.5 H (11.5-14.5) % Plt Count 499 H 461 H (130-400) K/uL Neutrophils % 81.0 H (47-80) % Lymphocytes % 14.6 L (16-45) % Lymphocytes 10.0 L (16-45) % Random Glucose 111 H (74-109) mg/dL Alkaline Phosphatase 113 H (45-87) U/L Albumin 3.1 L (4.0-5.0) g/dL Albumin/Globulin Ratio 0.8 L (1.1-1.8) 11/06/18 Range/Units 18:03 Hgb (11.6-16.0) gm/dl Hct (35.0-47.0) % MCH (27-33) pg MCHC (32-36) g/dl RDW (11.5-14.5) % Plt Count (130-400) K/uL Neutrophils % (47-80) % Lymphocytes % (16-45) % Lymphocytes (16-45) % Random Glucose 116 H (74-109) mg/dL Alkaline Phosphatase (45-87) U/L Albumin (4.0-5.0) g/dL Albumin/Globulin Ratio (1.1-1.8) Condition at Discharge: (3) Guarded Discharge Medications - Discharge Medications Home Medications: Ambulatory Orders Acetaminophen [Tylenol 500Mg Tab] 1,000 mg PO Q6H PRN tablet 11/07/18 [Last Taken Unknown] Donepezil HCl [Aricept] 10 mg PO QHS tablet 11/07/18 [Last Taken Unknown] Enoxaparin Sodium [Lovenox] 40 mg SQ DAILY syr 11/07/18 [Last Taken Unknown] Memantine HCl [Namenda] 10 mg PO BID tablet 11/07/18 [Last Taken Unknown] Metoprolol Succinate [Toprol Xl] 25 mg PO DAILY tab.er.24h 11/07/18 [Last Taken Unknown] Mirtazapine [Remeron] 15 mg PO QHS tablet 11/07/18 [Last Taken Unknown] Multivitamin/Iron/Folic Acid [Centrum] 1 tab PO DAILY tablet 11/07/18 [Last Taken Unknown] Pantoprazole Sodium [Protonix] 40 mg PO DAILYAC tablet.dr 11/07/18 [Last Taken Unknown] Simvastatin [Zocor] 20 mg PO QHS tablet 11/07/18 [Last Taken Unknown] Zinc Oxide [Desitin] 10 gm TOP ASDIR PRN tube 11/07/18 [Last Taken Unknown] Discharge Plan - Discharge Instructions Additional Instructions: Appointment with Dr. Long with Infectious Disease on November 25, [address] Long is located at [address] [facility] [address], [facility] [address]. Phone # is [phone]. Quality Measures - Quality Measures Quality Measures: Advance Directives, Documentation of Current Medications in Medical Record, Elder Maltreatment Screen and Follow-Up Plan, Screening for High Blood Pressure and F/U Documented - Current Medications Quality Measure: Measure #130: Documentation of Current Medications Documentation of Current Medications: <Current Medications Documented/Reviewed> [G8427] - Blood Pressure Screening Quality Measure: Screening for High Blood Pressure and Follow-Up Documented Does Patient Have Any of the Following: Active Dx of HTN Blood Pressure Classification: Pre-Hypertensive BP Reading Systolic Measurement: 127 Diastolic Measurement: 77 Screening for High Blood Pressure: Patient Exclusion, Hx of HTN [G9744] - Advance Directives Quality Measure: Measure #47: Care Plan Advance Directives Established: No (Pt thinks she has; will check with her daughter Leydi this afternoon.) Advance Directives Information Provided To Patient: Declined Advance Directives on File: Yes Living Will: No Power of Inventory Worker: Yes Power of Inventory Worker Name: Leydi Degroot Advance Care Planning: <Care Plan/Decision Maker Not Decided; Discussed & Documented> [2104F] - Elder Abuse Suspicion Index Screening: Elder Abuse Suspicion Index Screening Rely on people for bathing, dressing, shopping, banking, etc: Yes Prevented from getting food, clothes, medication, etc: No Made to feel shamed or threatened by someone: No Forced to sign papers or use money against will: No Feel afraid, touched in ways not wanted or hurt physically: No Poor eye contact, withdrawn, malnourished, cuts or bruises: No Screening Result: Negative result EASI Reference Information: Jerome CURRIE, Enrike C, Ewa D, Cheryl Chavez.Development and validation of a tool to assist physicians identification of elder abuse: The Elder Abuse Suspicion Index (EASI ). Journal of Elder Abuse and Neglect, 2008; 20 (3): 276-300. - Elder Maltreatment Screen Quality Measures: Elder Maltreatment Screen and Follow-Up Plan Elder Maltreatment Screen: <Negative, No Follow-Up Plan Required> [K0050]
--- NOTE | 2018-11-08 14:35 | Rehab Discharge Summary ---
Patient Information - Patient Information Diagnosis: deconditioning d/t post diverting loop ostomy Ordered Treatment: PT Evaluate and Treat Past Medical/Surgical Hx: PAST MEDICAL/SURGICAL HISTORY Past Surgical History 10/21/2018 I&D abd abscess 10/24/2018 Lap diverting loop ilestomy PMH - Neuro Hx Seizures Yes PMH - GI Hx Gastrointestinal Disorders Yes Hx Diverticulitis Yes PMH - Psych Hx Psychiatric Problems Yes PMH - Hematology/Oncology Hx Chemotherapy Yes Premorbid Status: Detail (Pt lives with spouse in a 2 story house with 3 steps and 1 railing at the entrance. Her bedroom is usually on the second floor but she currently has a bed available on the main level. She has a walk in shower with a seat and grab bars and a standard height toilet with grab bars. She has a toilet riser that she prefers not to use. She is responsible for home mgmt and laundry and her spouse is responsible for meal prep. She ambulates with a 4 wheeled walker.) Precautions: [place], Fall, Other (isolation) Subjective Information - Subjective Information Per Patient (The patient complained of buttock region pain especially when sitting. The patient did not rate her pain using 0-10 pain scale.) Objective Data - Mental Status Patient Orientation: Oriented x3 (The patient was agitated at times and refused to complete rehab tasks at times.) - Visual Perception Appears within normal limits for therapeutic activities - ROM Within normal limits (LE AROM was WFL.) - Strength/Tone Not within normal limits (The paitent's LE strength was as follows: hip flexors 4-/5 R 4/5, hip abductors/adductors 4/5, knee musculature 4/5, ankle musculature 4+/5.) - Bed Mobility Independent (The patient was able to complete supine to and from sit independent , however often requested help and refused to complete on her own.), Needs Assist (The patient required minimal to moderate PA with scooting up in bed.) - Transfers Independent (The patient was independent with sit to and from stand transfer.) - Balance Balance Sitting: Good Balance Standing: Fair - Gait Detail (The patient was able to ambulate with 4 wheeled walker household distances with supervision for safety and occasional verbal cues not too push walker out too far in front. The patient ambulated on 3 steps with use of one railing with supervision for safety.) Therapy Assessment - Therapy Assessment Detail (The patient was independent/supervision with mobility however, performance was inconsistent. The patient was transferred secondary to medical status.) Problem List - Problem List Physical Therapy Problem List: Detail (1) Mental status- agitation, reluctance to complete ADL's independently 2) LE weakness R side greater then L 3) Assistance with bed mobility 4) Decreased ability to complete prolonged physical activity) Occupational Therapy Problem List: Detail (1. Decreased activity tolerance. 2. Decreased Ind with functional mobility needed for self cares. 3. Decreased Ind with dressing and showering.) Goals - Goals Physical Therapy Goals: 1) The patient will be independent with bed mobility ( Goal Partially Met). 2) Increase LE strength 1/3 muscle grade to increase stability of gait ( Goal Partially Met). 3) The patient will ambulate with assistive device with supervision for safety only using a safe gait pattern. ( Goal Partially Met). 4) The patient will be independent with all transfers. ( Goal Partially Met) Occupational Therapy Goals: Goals partially met: 1. Pt will demonstrate improved endurance to allow Ind with self care activites. 2. Pt will be Ind with bed mobility and ambulation to allow Ind with ADLs. 3. Pt will be Ind with total body dressing. 4. Pt will be Ind with showering in sitting. Plan - Plan Physical Therapy Plan: The patient was transferred to [facility] secondary to Medical status. Occupational Therapy Plan: Pt discharging home on 11/07/18. Recommend home OT.
== END 2018-11-07 19:00 | disposition short-term general hospital (02) | DRG 948 ==
LOC: MEDSURG 13:15
PROVIDERS: ADMIT Internal Medicine; ATTEND Internal Medicine
DX: R53.81 Other malaise (principal); L02.31 Cutaneous abscess of buttock; Z93.2 Ileostomy status; Z48.89 Encounter for other specified surgical aftercare; F03.90 Unspecified dementia, unspecified severity, without behavioral disturbance, psychotic disturbance, mood disturbance, and anxiety; R19.7 Diarrhea, unspecified; I10 Essential (primary) hypertension; R32 Unspecified urinary incontinence
CPT/HCPCS: 80048; 80053; 85025; 85027; 87070; 90670; 94010; 97110; 97530; 97535; 99306; 99309; 99316; J1650